=== PATIENT | female | born 1950 | race Native Hawaiian/Other Pacific Islander ===

== ENCOUNTER 2017-04-09 00:47 | Outpatient (CLI) | payer OTHER ==
[~2017-04-09 00:47] MED LIST: AMLO2.5T PO; AMLO5TAB PO; ASPIR-8181 MG PO; AVAPRO300 MG PO; CLONIDINE0.1 MG PO; CRESTOR20 MG PO; FUROSEMIDE40 MG PO; PANT40TA PO; PLAVIX75 MG PO; ULTRAM ER100 MG PO
== END 2017-04-09 01:19 | disposition short-term general hospital (02) ==
LOC: AMB 00:47
DX: R07.89 Other chest pain (principal); R53.1 Weakness
CPT/HCPCS: A0425; A0427

== ENCOUNTER 2018-05-31 10:47 | Outpatient (CLI) | payer OTHER | END 2018-05-31 19:28 | disposition home or self-care (01) | LOC: LAB 10:47 | DX: R19.7 Diarrhea, unspecified (principal) | CPT/HCPCS: 82272; 87015; 87045; 87324; 87328; 87329; 87449; 87899 ==

== ENCOUNTER 2018-06-12 14:39 | Outpatient (CLI) | payer OTHER | END 2018-06-12 20:35 | disposition home or self-care (01) | LOC: INF 14:39 | DX: E86.0 Dehydration (principal) ==

== ENCOUNTER 2019-07-12 09:07 | Outpatient (CLI) | payer OTHER ==
[2019-07-12 09:53] LABS: PLATELET COUNT 255 K/uL (152-353)
[2019-07-12 10:01] LABS: POTASSIUM 4.5 mmol/L (3.6-5.2)
== END 2019-07-12 21:06 | disposition home or self-care (01) ==
LOC: LABW 09:07
PROVIDERS: Internal Medicine
DX: N18.3 Chronic kidney disease, stage 3 (moderate) (principal)
CPT/HCPCS: 36415; 80053; 81000; 82043; 82570; 83735; 84100; 84155; 85027

== ENCOUNTER 2020-03-22 08:20 | Outpatient (CLI) | payer OTHER ==
[2020-03-22 09:56] LABS: PLATELET COUNT 294 K/uL (152-353)
== END 2020-03-22 20:25 | disposition home or self-care (01) ==
LOC: LABW 08:20
PROVIDERS: Internal Medicine
DX: N18.4 Chronic kidney disease, stage 4 (severe) (principal); Z79.899 Other long term (current) drug therapy
CPT/HCPCS: 36415; 80053; 81000; 82043; 82570; 83735; 84100; 84155; 85027

== ENCOUNTER 2020-04-19 08:59 | Outpatient (CLI) | payer OTHER ==
[2020-04-19 09:48] LABS: PLATELET COUNT 211 K/uL (152-353)
[2020-04-19 10:15] LABS: POTASSIUM 3.7 mmol/L (3.6-5.2)
== END 2020-04-19 19:13 | disposition home or self-care (01) ==
LOC: LABW 08:59
PROVIDERS: Internal Medicine
DX: N18.3 Chronic kidney disease, stage 3 (moderate) (principal); Z79.899 Other long term (current) drug therapy; M10.09 Idiopathic gout, multiple sites
CPT/HCPCS: 36415; 80053; 80061; 81000; 82330; 82570; 82955; 83036; 83735; 84100; 84155; 84550; 85027

== ENCOUNTER 2020-07-06 09:36 | Outpatient (CLI) | payer OTHER ==
[2020-07-06 10:43] LABS: PLATELET COUNT 260 K/uL (152-353)
== END 2020-07-06 22:24 | disposition home or self-care (01) ==
LOC: LABW 09:36
PROVIDERS: ATTEND Internal Medicine
DX: N18.30 Chronic kidney disease, stage 3 unspecified (principal); M10.09 Idiopathic gout, multiple sites; Z79.899 Other long term (current) drug therapy
CPT/HCPCS: 36415; 80053; 80061; 81000; 82330; 82570; 82955; 83036; 83735; 84100; 84155; 84550; 85027

== ENCOUNTER 2020-07-14 11:42 | Emergency (ER) | payer OTHER ==
[~2020-07-14] VITALS: Ht 165.1 cm; Wt 115.2 kg
[2020-07-14 11:52] VITALS: BP 173/67; TEMP 97.3
== END 2020-07-14 13:23 | disposition home or self-care (01) ==
LOC: ED 11:42
DX: J06.9 Acute upper respiratory infection, unspecified (principal); J02.9 Acute pharyngitis, unspecified; Z03.818 Encounter for observation for suspected exposure to other biological agents ruled out
CPT/HCPCS: 87502; 87635; 87651; 99283; U0003

== ENCOUNTER 2021-05-29 13:33 | Emergency (ER) | payer OTHER ==
[~2021-05-29] VITALS: Ht 165.1 cm; Wt 115.2 kg
[2021-05-29 14:17] LABS: PLATELET COUNT 364 K/uL (152-353)
[2021-05-29 14:22] LABS: POTASSIUM 3.2 mmol/L (3.6-5.2)
[2021-05-29 16:23] VITALS: BP 145/50; TEMP 97.5
== END 2021-05-29 16:23 | disposition home or self-care (01) ==
LOC: ED 13:33
PROVIDERS: Emergency Medicine Emergency Medical Services
DX: H83.09 Labyrinthitis, unspecified ear (principal); E87.6 Hypokalemia
CPT/HCPCS: 80053; 81000; 84484; 85027; 93005; 96365; 99284

== ENCOUNTER 2021-07-20 10:50 | Outpatient (CLI) | payer OTHER | END 2021-07-20 20:21 | disposition home or self-care (01) | LOC: RAD 10:50 | PROVIDERS: ATTEND Nurse Practitioner | DX: M25.552 Pain in left hip (principal) ==

== ENCOUNTER 2022-06-16 13:25 | Outpatient (CLI) | payer OTHER | END 2022-06-16 20:35 | disposition home or self-care (01) | LOC: MAMMO 13:25 | PROVIDERS: ATTEND Nurse Practitioner | DX: Z12.31 Encounter for screening mammogram for malignant neoplasm of breast (principal) ==

== ENCOUNTER → 2023-02-09 | Outpatient (CLI) | payer OTHER | LOC: US 10:16 | PROVIDERS: ATTEND Nurse Practitioner Family | DX: M25.562 Pain in left knee (principal) ==